=== PATIENT | female | born 1985 | race Caucasian/White ===

== ENCOUNTER 2016-09-25 10:05 | Emergency (ER) | payer MEDICAID ==
[~2016-09-25] VITALS: Wt 43.0 kg
[2016-09-25] MEDS ORDERED: ACETAMINOPHEN 325 MG TAB PO STA (11:08)
[2016-09-25] MEDS ORDERED: SOD CHLORIDE 0.9% 1,000 ML IV STA (11:08)
--- NOTE | 2016-09-25 11:13 | ERD ---
ER Documentation Chief Complaint Date/Time DATE: 09/25/16 TIME: 11:10 Chief Complaint vag bleed 4 wks with mild abdominal cramping. no n/v HPI 31-year-old female presents emergency department with a 1 day history of heavy bleeding with clots. Patient estimates that she is 4 weeks . Patient also notes mild lower abdominal cramping which she currently rates as a 2 out of 10. Patient reports using 1-2 pads per hour for the bleeding. Patient denies any nausea, vomiting, diarrhea, fever, chills, dysuria, other vaginal discharge, back pain. Last normal period was 12 August 2016. G3, P1, A1 ROS All systems reviewed and are negative except as per history of present illness. Allergies Allergies: Coded Allergies: Penicillins (Verified Allergy, Unknown, rash, 11/11/13) PMhx/Soc Medical and Surgical Hx: pt denies Medical Hx, pt denies Surgical Hx Hx Alcohol Use: No Hx Substance Use: No Hx Tobacco Use: No Smoking Status: Never smoker Physical Exam Vitals Vital Signs Date Time Temp Pulse Resp B/P Pulse Ox O2 Delivery O2 Flow Rate FiO2 09/25/16 10:08 98.4 94 20 124/82 99 Physical Exam Const: Well-developed, well-nourished, in no acute distress Head: Atraumatic . Resp: Clear to auscultation bilaterally Cardio: Regular rate and rhythm, no murmurs Abd: Soft, non tender, non distended. Normal bowel sounds Skin: No petechiae or rashes Back: No midline or flank tenderness Ext: No cyanosis, or edema Neur: Awake and alert Psych: Normal Mood and Affect Result Diagram: 09/25/16 1126 09/25/16 1126 Results 24 hrs Laboratory Tests Test 09/25/16 11:26 White Blood Count 6.610^3/ul Red Blood Count 4.6010^6/ul Hemoglobin 14.3g/dl Hematocrit 42.5% Mean Corpuscular Volume 92.4fl Mean Corpuscular Hemoglobin 31.1pg Mean Corpuscular Hemoglobin Concent 33.6g/dl Red Cell Distribution Width 11.9% Platelet Count 49895^3/UL Mean Platelet Volume 9.7fl Neutrophils % 65.7% Lymphocytes % 25.6% Monocytes % 7.1% Eosinophils % 1.1% Basophils % 0.2% Nucleated Red Blood Cells % 0.0/100WBC Neutrophils # 4.410^3/ul Lymphocytes # 1.710^3/ul Monocytes # 0.510^3/ul Eosinophils # 0.110^3/ul Basophils # 0.010^3/ul Nucleated Red Blood Cells # 0.010^3/ul Prothrombin Time 12.7Sec Prothrombin Time Ratio 1.0 INR International Normalized Ratio 0.95 Activated Partial Thromboplast Time 28.7Sec Urine Color YELLOW Urine Clarity CLEAR Urine pH 6.5 Urine Specific [place] 1.020 Urine Ketones NEGATIVE Urine Nitrite NEGATIVE Urine Bilirubin NEGATIVE Urine Urobilinogen 1.0 E.U./dL Urine Leukocyte Esterase NEGATIVE Urine Microscopic RBC 0-2/HPF Urine Microscopic WBC 0-2/HPF Urine Epithelial Cells MODERATE Urine Bacteria FEW Urine Hemoglobin TRACE Urine Glucose NEGATIVE% Urine Total Protein NEGATIVE Sodium Level 142mmol/L Potassium Level 3.4mmol/L Chloride Level 101mmol/L Carbon Dioxide Level 30mmol/L Anion Gap 14 Blood Urea Nitrogen 7mg/dl Creatinine 0.58mg/dl Glucose Level 109mg/dl Calcium Level 9.3mg/dl Beta HCG, Quantitative 2940.3mIU/ml Current Medications Medications (Trade) Dose Ordered Sig/James Route PRN Reason Start Time Stop Time Status Last Admin Dose Admin Sodium Chloride (NS) 1,000 ml @ 1,000 mls/hr Q1H STAT IV 09/25/16 11:08 09/25/16 12:07 DC 09/25/16 11:25 Acetaminophen (Tylenol Tab) 650 mg ONCE STAT PO 09/25/16 11:08 09/25/16 11:11 DC 09/25/16 11:26 Procedures/MDM PROCEDURE: US Pelvis. CLINICAL INDICATION: Vaginal bleeding and . TECHNIQUE: Multiple real time campos-scale sonographic images of the pelvis with Doppler evaluation of the ovaries were obtained utilizing a transabdominaland endovaginal technique. COMPARISON: None. FINDINGS: No evidence of intrauterine . The uterus measures 8.5 x 5.1 x 6.2 cm. The endometrial echo complex is normal and measures 6 mm in thickness. The right ovary has a normal echotexture and measures 3.8 x 1.3 x 1.8 cm . The left ovary has a normal echotexture and measures 3 x 1.2 x 2 cm. 2 x 1.57 mass- like structure adjacent to the right ovary with no appreciable internal blood flow. This may represent an ovarian fibroma. Given the history of positive , is concerning for possible ectopic Normal ovarian blood flow bilaterally. There is no evidence for free fluid within the cul-de-sac.No adnexal masses are noted. IMPRESSION: 1. No intrauterine identified. 2 x 1.5 cm nonspecific mass-like structure adjacent to the right ovary. This may represent an ovarian fibroma, however, given the history of positive , ectopic cannot be excluded . Correlate clinically to assess for missed AB. Serial Beta HCG and follow-up ultrasound may be considered for further evaluation. RPTAT:AAJJ Fracisco Rodriguez Physician Date Time Electronically viewed and signed by Physician Sivan on 09/25/2016 12:46 OVIDIO/ CC: ISMAEL MARSHALL PA-C Patient's pain controlled with 1 dose of Tylenol. Currently reports 0 out of 10 discomfort. 31-year-old otherwise healthy female presents with a 1 day history of vaginal bleeding and lower abdominal cramping. Last normal period 12 August 2016. Patient ultrasound revealed no evidence of intrauterine however there was a mass adjacent to the right ovary measured at 2. 1.5 cm. CBC showed no evidence of systemic infection or severe anemia. BMP showed no evidence of electrolyte abnormalities, severe acidosis, alkalosis , renal failure, or liver disease. UA showed no evidence of acute infection or hematuria. Beta hCG measured at 2940 Rh type A positive Labor and delivery on-call physician, Dr Kincaid, was consulted and examined the patient at bedside. He recommended follow-up in 3 days with repeat ultrasound and beta hCG. Return precautions given including increased pain or severe bleeding. Patient expressed understanding of and agreement with plan Based on patient's history of present illness and physical examination the decision was made to discharge. The patient was re-evaluated after ED treatment and stabilizing measures, and symptoms have improved. There is no evidence of life threatening injuries or illnesses at this time. On re-examination, patient resting in no distress, stable vital signs, reports feeling better and safe for discharge with outpatient follow up with PMD in 1-2 days. Patient given return precautions. Departure Diagnosis: Primary Impression: Vaginal bleeding in patient at less than 20 weeks gestation Additional Impressions: Abdominal cramping Missed ISMAEL MARSHALL PA-C Sep 25, 2016 11:13 ISMAEL MARSHALL PA-C Sep 25, 2016 11:13
[2016-09-25 12:09] LABS: ADD SCAN DIFF NO
[2016-09-25 12:19] LABS: BASOPHILS % 0.2 % (0.0-2.0); EOSINOPHILS # 0.1 10^3/ul (0.0-0.5); EOSINOPHILS % 1.1 % (0.0-7.0); HEMATOCRIT 42.5 % (37.0-47.0); HEMOGLOBIN 14.3 g/dl (12.0-16.0); LYMPHOCYTES # 1.7 10^3/ul (0.8-2.9); LYMPHOCYTES % 25.6 % (15.0-51.0); MEAN CORPUSCULAR HEMOGLOBIN 31.1 pg (29.0-33.0); MEAN CORPUSCULAR HGB CONC 33.6 g/dl (32.0-37.0); MEAN CORPUSCULAR VOLUME 92.4 fl (82.0-101.0); MEAN PLATELET VOLUME 9.7 fl (7.4-10.4); MONOCYTE # 0.5 10^3/ul (0.3-0.9); MONOCYTES % 7.1 % (0.0-11.0); NEUTROPHIL # 4.4 10^3/ul (1.6-7.5); NEUTROPHILS % 65.7 % (39.0-77.0); PLATELET COUNT 351 10^3/UL (140-415); RED CELL DISTRIBUTION WIDTH 11.9 % (11.5-14.5); WHITE BLOOD COUNT 6.6 10^3/ul (4.8-10.8)
[2016-09-25 12:20] LABS: ADD UMIC YES; INR 0.95; POTASSIUM 3.4 mmol/L (3.5-5.1); PROTIME 12.7 Sec (12.2-14.2); URINE BILIRUBIN (Dip) NEGATIVE (NEGATIVE); URINE BLOOD (Dip) TRACE (NEGATIVE); URINE COLOR YELLOW (YELLOW); URINE GLUCOSE (Dip) NEGATIVE (NEGATIVE); URINE KETONES (Dip) NEGATIVE (NEGATIVE); URINE LEUKOCYTE ESTERASE (Dip) NEGATIVE (NEGATIVE); URINE NITRITE (Dip) NEGATIVE (NEGATIVE); URINE TOTAL PROTEIN (Dip) NEGATIVE (NEGATIVE); URINE UROBILINOGEN (Dip) 1.0 E.U./dL (0.1-1.0)
[2016-09-25 12:21] LABS: PARTIAL THROMBOPLASTIN TIME 28.7 Sec (25.0-35.0)
[2016-09-25 12:22] LABS: CREATININE 0.58 mg/dl (0.44-1.00)
[2016-09-25 12:23] LABS: CALCIUM 9.3 mg/dl (8.4-10.2)
[2016-09-25 12:41] LABS: BACTERIA,URINE FEW; URINE RBCS 0-2 /HPF (0)
--- NOTE | 2016-09-25 12:46 | RADRPT ---
PROCEDURE: US Pelvis. CLINICAL INDICATION: Vaginal bleeding and . TECHNIQUE: Multiple real time campos-scale sonographic images of the pelvis with Doppler evaluation of the ovaries were obtained utilizing a transabdominaland endovaginal technique. COMPARISON: None. FINDINGS: No evidence of intrauterine . The uterus measures 8.5 x 5.1 x 6.2 cm. The endometrial echo complex is normal and measures 6 mm in thickness. The right ovary has a normal echotexture and measures 3.8 x 1.3 x 1.8 cm . The left ovary has a nor mal echotexture and measures 3 x 1.2 x 2 cm. 2 x 1.57 mass-like structure adjacent to the right ova ry with no appreciable internal blood flow. This may represent an ovarian fibroma. Given the histo ry of positive , is concerning for possible ectopic Normal ovarian blood flow jazz[place] aterally. There is no evidence for free fluid within the cul-de-sac.No adnexal masses are noted. IMPRESSION: 1. No intrauterine identified. 2 x 1.5 cm nonspecific mass-like structure adjacent to the right ovary. This may represent an ovarian fibroma, however, given the history of positive pregna ncy, ectopic cannot be excluded . Correlate clinically to assess for missed AB. Serial B eta HCG and follow-up ultrasound may be considered for further evaluation. RPTAT:AAJJ Physician Sivan Date Time Electronically viewed and signed by Physician Sivan on 09/25/2016 12:46 OVIDIO/
[2016-09-25] MEDS ORDERED: ONDA4TAB14 PO (14:27)
[2016-09-25] MEDS ORDERED: NAPR-260 PO (14:27)
--- NOTE | 2016-09-25 15:06 | CONS ---
Date/Time of Note Date/Time of Note DATE: 09/25/16 TIME: 14:57 Consultation Date/Type/Reason Admit Date/Time September 25, 2016 Emergency room consult Reason for Consultation This patient is a 31 years old 3 para 1 AB 1 who had one delivery by section she came to the emergency room complaining of vaginal bleeding her last menstrual period was August 12, 2016 Her previous periods apparently were regular in emergency room her beta-hCG level was reported 2940 She mentioned that at home before coming to the hospital she did have a considerable amount of blood and blood clot passed from vagina On ultrasound study adjacent to the right ovary there was a mass of 2 x 1.57 mm which apparently did not help much of the blood flow and it was similar to fibroid as explained by radiologist on this yesterday there was no fluid in the posterior cul-de-sac the left ovary was normal uterus appeared to be normal no evidence of intrauterine content the uterus itself was 8.5 x 5.1 was 6.2 cm and endometrial echocomplex was reported normal with thickness of 6 mm impression of the radiologist no intrauterine was identified in view of the positive hCG follow-up study was recommended on my examination the patient was a lady in no acute distress her ear nose throat were normal neck was normal no neck vein distention no thyromegaly chest was clear and was soft no rebound no lower abdominal tenderness no CVA tenderness extremities also appears to be normal. On pelvic examination vulva and vagina appears to be normal she has a slight vaginal bleeding cervix appears to be closed and posterior uterus within normal size no tenderness and no motion tenderness and tenderness of the cervix either both adnexa appeared to be normal without any evidence of enlargement or tenderness Hx of Present Illness Laboratory Tests Test 09/25/16 11:26 White Blood Count 6.610^3/ul Red Blood Count 4.6010^6/ul Hemoglobin 14.3g/dl Hematocrit 42.5% Mean Corpuscular Volume 92.4fl Mean Corpuscular Hemoglobin 31.1pg Mean Corpuscular Hemoglobin Concent 33.6g/dl Red Cell Distribution Width 11.9% Platelet Count 61724^3/UL Mean Platelet Volume 9.7fl Neutrophils % 65.7% Lymphocytes % 25.6% Monocytes % 7.1% Eosinophils % 1.1% Basophils % 0.2% Nucleated Red Blood Cells % 0.0/100WBC Neutrophils # 4.410^3/ul Lymphocytes # 1.710^3/ul Monocytes # 0.510^3/ul Eosinophils # 0.110^3/ul Basophils # 0.010^3/ul Nucleated Red Blood Cells # 0.010^3/ul Prothrombin Time 12.7Sec Prothrombin Time Ratio 1.0 INR International Normalized Ratio 0.95 Activated Partial Thromboplast Time 28.7Sec Urine Color YELLOW Urine Clarity CLEAR Urine pH 6.5 Urine Specific [place] 1.020 Urine Ketones NEGATIVE Urine Nitrite NEGATIVE Urine Bilirubin NEGATIVE Urine Urobilinogen 1.0 E.U./dL Urine Leukocyte Esterase NEGATIVE Urine Microscopic RBC 0-2/HPF Urine Microscopic WBC 0-2/HPF Urine Epithelial Cells MODERATE Urine Bacteria FEW Urine Hemoglobin TRACE Urine Glucose NEGATIVE% Urine Total Protein NEGATIVE Sodium Level 142mmol/L Potassium Level 3.4mmol/L Chloride Level 101mmol/L Carbon Dioxide Level 30mmol/L Anion Gap 14 Blood Urea Nitrogen 7mg/dl Creatinine 0.58mg/dl Glucose Level 109mg/dl Calcium Level 9.3mg/dl Beta HCG, Quantitative 2940.3mIU/ml Current Medications Medications (Trade) Dose Ordered Sig/James Route PRN Reason Start Time Stop Time Status Last Admin Dose Admin Sodium Chloride (NS) 1,000 ml @ 1,000 mls/hr Q1H STAT IV 09/25/16 11:08 09/25/16 12:07 DC 09/25/16 11:25 1,000 MLS/HR Acetaminophen (Tylenol Tab) 650 mg ONCE STAT PO 09/25/16 11:08 09/25/16 11:11 DC 09/25/16 11:26 650 MG With these positive finding patient was given the choice of either having a D&C right now or just going home and waiting and returning in the hospital in 3 days for follow-up test to rule out the possibility of ectopic 100% she decided not to have a D&C and go home and come back and 3 4 days in the emergency room end of dictation Constitutional: No chills, No diaphoresis, No disoriented, No febrile, No improved, No no complaints, No other, No poor po, No requiring IVF, No requiring O2 Eyes: No discharge, No no complaints, No other, No pain, No redness, No visual change ENT: No bleeding, No congestion, No discharge, No dysphagia, No no complaints, No other, No pain, No sore throat Respiratory: No cough, No no complaints, No other, No pain, No pleuritic pain, No shortness of breath, No sputum, No wheezing Cardiovascular: No chest pain, No edema, No lightheadedness, No no complaints, No orthopenea, No other, No palpitations, No paroxysmal nocturnal dyspnea Gastrointestinal: other (As I mentioned there were moderate amount of bleeding uterus was normal size no cervical motion tenderness no abdominal tenderness), No blood, No constipation, No decreased appetite, No diarrhea, No flatus, No nausea, No no complaints, No pain, No passing stool, No vomiting Genitourinary: No bleeding, No discharge, No dysuria, No flank pain, No hematuria, No no complaints, No other Musculoskeletal: No back pain, No bone/joint pain, No neck pain, No no complaints, No other, No restricted range of motion, No swelling Skin: No bruising, No erythema, No laceration, No no complaints, No other, No pruritis, No rash, No skin lesions Neurologic: No confusion, No dizziness, No focal-weakness, No headache, No no complaints, No other, No seizure, No syncope Endocrine: No dry skin, No no complaints, No other, No polydypsia, No polyuria , No temp intolerance Social History Smoking Status: Never smoker Exam/Review of Systems Vital Signs Vitals Vital Signs Date Time Temp Pulse Resp B/P Pulse Ox O2 Delivery O2 Flow Rate FiO2 09/25/16 10:08 98.4 94 20 124/82 99 Results Result Diagram: 09/25/16 1126 09/25/16 1126 Results 24 hrs Laboratory Tests Test 09/25/16 11:26 White Blood Count 6.6 Red Blood Count 4.60 Hemoglobin 14.3 Hematocrit 42.5 Mean Corpuscular Volume 92.4 Mean Corpuscular Hemoglobin 31.1 Mean Corpuscular Hemoglobin Concent 33.6 Red Cell Distribution Width 11.9 Platelet Count 351 Mean Platelet Volume 9.7 Neutrophils % 65.7 Lymphocytes % 25.6 Monocytes % 7.1 Eosinophils % 1.1 Basophils % 0.2 Nucleated Red Blood Cells % 0.0 Neutrophils # 4.4 Lymphocytes # 1.7 Monocytes # 0.5 Eosinophils # 0.1 Basophils # 0.0 Nucleated Red Blood Cells # 0.0 Prothrombin Time 12.7 Prothrombin Time Ratio 1.0 INR International Normalized Ratio 0.95 Activated Partial Thromboplast Time 28.7 Urine Color YELLOW Urine Clarity CLEAR Urine pH 6.5 Urine Specific [place] 1.020 Urine Ketones NEGATIVE Urine Nitrite NEGATIVE Urine Bilirubin NEGATIVE Urine Urobilinogen 1.0 E.U./dL Urine Leukocyte Esterase NEGATIVE Urine Microscopic RBC 0-2 Urine Microscopic WBC 0-2 Urine Epithelial Cells MODERATE Urine Bacteria FEW Urine Hemoglobin TRACE Urine Glucose NEGATIVE Urine Total Protein NEGATIVE Sodium Level 142 Potassium Level 3.4 L Chloride Level 101 Carbon Dioxide Level 30 Anion Gap 14 Blood Urea Nitrogen 7 Creatinine 0.58 Glucose Level 109 Calcium Level 9.3 Beta HCG, Quantitative 2940.3 BRIAN CARRASCO MD Sep 25, 2016 15:06
== END 2016-09-25 14:34 | disposition home or self-care (01) ==
LOC: FTE 10:05
DX: O26.891 Other specified pregnancy related conditions, first trimester (principal); R10.30 Lower abdominal pain, unspecified; O02.1 Missed abortion
CPT/HCPCS: 76801; 76817; 80048; 81001; 81003; 84702; 85025; 85610; 85730; 86900; 86901; J7030; Z7610; 36415

== ENCOUNTER 2016-09-29 11:36 | Emergency (ER) | payer MEDICAID ==
[~2016-09-29] VITALS: Ht 149.9 cm; Wt 44.5 kg
[~2016-09-29 11:36] MED LIST: NAPR-260 PO; ONDA4TAB14 PO
[2016-09-29 11:50] VITALS: Ht 149.9 cm; Wt 44.5 kg
[2016-09-29 13:41] LABS: ADD SCAN DIFF NO
[2016-09-29 13:46] LABS: BASOPHILS % 0.4 % (0.0-2.0); EOSINOPHILS # 0.2 10^3/ul (0.0-0.5); EOSINOPHILS % 3.8 % (0.0-7.0); HEMATOCRIT 38.7 % (37.0-47.0); LYMPHOCYTES # 1.6 10^3/ul (0.8-2.9); LYMPHOCYTES % 36.8 % (15.0-51.0); MEAN CORPUSCULAR HEMOGLOBIN 31.2 pg (29.0-33.0); MEAN CORPUSCULAR HGB CONC 33.6 g/dl (32.0-37.0); MEAN CORPUSCULAR VOLUME 92.8 fl (82.0-101.0); MEAN PLATELET VOLUME 9.4 fl (7.4-10.4); MONOCYTE # 0.4 10^3/ul (0.3-0.9); NEUTROPHIL # 2.2 10^3/ul (1.6-7.5); NEUTROPHILS % 49.6 % (39.0-77.0); PLATELET COUNT 322 10^3/UL (140-415); RED BLOOD COUNT 4.17 10^6/ul (4.20-5.40); RED CELL DISTRIBUTION WIDTH 12.1 % (11.5-14.5); WHITE BLOOD COUNT 4.5 10^3/ul (4.8-10.8)
--- NOTE | 2016-09-29 14:26 | ERD ---
ER Documentation Chief Complaint Date/Time DATE: 09/29/16 TIME: 14:24 Chief Complaint vag bleed x 4 days , here for recheck HPI This 31 [id number] female is here for recheck for vaginal bleeding of early . She was seen here 2 days ago had a quantitative hCG approximately 2000 with a ultrasound which showed no intrauterine . There was a paraovarian lesion possibly a fibroma but also cannot rule out ectopic. Patient has had complete resolution of bleeding and has no pain. Patient is a G3 para 1. Patient is Rh+ from previous visit. ROS All systems reviewed and are negative except as per history of present illness. Medications Home Meds Active Scripts Ondansetron (Ondansetron Odt) 4 Mg Tab.rapdis, 4 MG PO Q6H Y for NAUSEA AND/OR VOMITING, #10 TAB Prov:ISMAEL MARSHALL PA-C 09/25/16 Naproxen* (Naprosyn*) 500 Mg Tablet, 500 MG PO BID Y for PAIN AND/OR INFLAMMATION, #30 TAB Prov:ISMAEL MARSHALL PA-C 09/25/16 Allergies Allergies: Coded Allergies: Penicillins (Verified Allergy, Unknown, rash, 11/11/13) PMhx/Soc Medical and Surgical Hx: pt denies Medical Hx, pt denies Surgical Hx Hx Alcohol Use: No Hx Substance Use: No Hx Tobacco Use: No Physical Exam Vitals Vital Signs Date Time Temp Pulse Resp B/P Pulse Ox O2 Delivery O2 Flow Rate FiO2 09/29/16 11:50 98.8 78 16 129/73 100 Physical Exam Const: [] Head: Atraumatic Eyes: Normal Conjunctiva ENT: Normal External Ears, Nose and Mouth. Neck: Full range of motion..~ No meningismus. Resp: Clear to auscultation bilaterally Cardio: Regular rate and rhythm, no murmurs Abd: Soft, non tender, non distended. Normal bowel sounds Skin: No petechiae or rashes Back: No midline or flank tenderness Ext: No cyanosis, or edema Neur: Awake and alert Psych: Normal Mood and Affect Result Diagram: 09/29/16 1330 Results 24 hrs Laboratory Tests Test 09/29/16 13:30 White Blood Count 4.510^3/ul Red Blood Count 4.1710^6/ul Hemoglobin 13.0g/dl Hematocrit 38.7% Mean Corpuscular Volume 92.8fl Mean Corpuscular Hemoglobin 31.2pg Mean Corpuscular Hemoglobin Concent 33.6g/dl Red Cell Distribution Width 12.1% Platelet Count 25192^3/UL Mean Platelet Volume 9.4fl Neutrophils % 49.6% Lymphocytes % 36.8% Monocytes % 9.0% Eosinophils % 3.8% Basophils % 0.4% Nucleated Red Blood Cells % 0.0/100WBC Neutrophils # 2.210^3/ul Lymphocytes # 1.610^3/ul Monocytes # 0.410^3/ul Eosinophils # 0.210^3/ul Basophils # 0.010^3/ul Nucleated Red Blood Cells # 0.010^3/ul Beta HCG, Quantitative 275.6mIU/ml Procedures/MDM CBC is normal. Quantitative hCG is 275. Patient was asymptomatic throughout the ED course. Patient was signs and symptoms of likely complete . Recommending one more hCG check in 3-4 days. Should return sooner for fevers, pain, bleeding, new worsening symptoms. Current suspicion for ectopic very low but patient should return as directed. Should she see OB for follow-up this week. There is no other signs of acute abdomen, additional causes of lower abdominal pain or vaginal bleeding. Departure Diagnosis: Primary Impression: Complete Condition: Stable Patient Instructions: Miscarriage, Spontaneous (Completed) Additional Instructions: hormones esta muy abajo. probablente aborto completo . cheque ileana otro vez 3- 4 mas bull, o mas p[ronto para dolor , ileana , nueva simptomas. JAROD MARTINS MD Sep 29, 2016 14:26
[2016-09-29 14:40] VITALS: TEMP 98.5
== END 2016-09-29 14:40 | disposition home or self-care (01) ==
LOC: FTE 11:36
DX: O03.9 Complete or unspecified spontaneous abortion without complication (principal)
CPT/HCPCS: 36415; 84702; 85025; Z7502; 99283

== ENCOUNTER 2018-11-29 08:18 | Emergency (ER) | payer MEDICAID ==
[~2018-11-29] VITALS: Wt 60.0 kg
[~2018-11-29 08:18] MED LIST changes: -NAPR-260 PO; +NAPR-985 PO
[2018-11-29 08:21] VITALS: BP 125/78; PULSE 102; RESP 18
[2018-11-29] MEDS ORDERED: ONDANSETRON (ODT) 4 MG TAB ODT STA (08:38)
[2018-11-29] MEDS ORDERED: HYDROCODONE/APAP (5/325) TAB PO ONE (09:00)
[2018-11-29] MEDS ORDERED: NAPR-985 PO (09:50)
[2018-11-29] MEDS ORDERED: HYDR-4011 PO (09:50)
--- NOTE | 2018-11-29 13:59 | ERD ---
ER Documentation Chief Complaint Chief Complaint r shoulder pain from slip and fall outside couthouse . no obvious deformity HPI 33-year-old female presenting with right shoulder pain after slip and fall earlier today. Patient is right-hand dominant. She has not taken medications for symptoms. She has pain located over the shoulder and the clavicle. Denies medical problems. Allergy to penicillin. Surgical history . Social history denies ROS All systems reviewed and are negative except as per history of present illness. Medications Home Meds Active Scripts Naproxen* (Naprosyn*) 500 Mg Tablet, 500 MG PO BID PRN for PAIN AND/OR INFLAMMATION, #30 TAB Prov:GRISEL SLATER PA-C 11/29/18 Hydrocodone/Acetaminophen (Ash[place] 5-325 Tablet) 1 Each Tablet, 1 TAB PO Q6H PRN for PAIN, #7 TAB Prov:GRISEL SLATER PA-C 11/29/18 Ondansetron (Ondansetron Odt) 4 Mg Tab.rapdis, 4 MG PO Q6H PRN for NAUSEA AND/OR VOMITING, #10 TAB Prov:ISMAEL MARSHALL PA-C 09/25/16 Naproxen* (Naprosyn*) 500 Mg Tablet, 500 MG PO BID PRN for PAIN AND/OR INFLAMMATION, #30 TAB Prov:ISMAEL MARSHALL PA-C 09/25/16 Allergies Allergies: Coded Allergies: Penicillins (Verified Allergy, Unknown, rash, 11/11/13) PMhx/Soc History of Surgery: Yes (C/S) Anesthesia Reaction: No Hx Respiratory Disorders: Yes (Asthma) Hx Alcohol Use: No Hx Substance Use: No Hx Tobacco Use: No Smoking Status: Never smoker FmHx Family History: No diabetes, No coronary disease, No other Physical Exam Vitals Vital Signs Date Temp Pulse Resp B/P (MAP) Pulse Ox O2 O2 Flow FiO2 Time Delivery Rate 11/29/18 98.8 102 18 125/78 98 08:21 (94) Physical Exam GENERAL: The patient is well-appearing, well-nourished, in no acute distress CHEST: Clear to auscultation bilaterally. There are no rales, wheezes or rhonchi. HEART: Regular rate and rhythm. No murmurs, clicks, rubs or gallops. No S3 or S4. EXTREMITIES: Tender to palpation of her right shoulder. No palpable deformities. No crepitus on exam. No swelling. No lacerations or abrasions. Decreased range of motion secondary to pain. Compartments soft. NEUROLOGIC: Alert and oriented. Cranial nerves II through XII intact. Motor strength in all 4 extremities with 5 out of 5 strength. Sensation grossly intact. Normal speech and gait. SKIN: There is no apparent rash or petechiae. The skin is warm and dry. Results 24 hrs Current Medications Medications Dose Sig/James Start Time Status Last (Trade) Ordered Route PRN Stop Time Admin Dose Reason Admin 1 tab ONCE ONCE 11/29/18 DC 11/29/18 Acetaminophen PO 09:00 11/29/18 08:44 / 09:01 Hydrocodone Bitart (Ashford (5/325)) Ondansetron 4 mg ONCE STAT 11/29/18 DC 11/29/18 HCl (Zofran ODT 08:38 11/29/18 08:44 Odt) 08:39 Procedures/MDM DIAGNOSTIC IMAGING REPORT Patient: TAMIKO HODGES : 1985 Age: 33 Sex: F MR #: [id number] DOS: 11/29/18 0838 Ordering MD: LESA SLATER PA-C Location: [facility] Room/Bed: PROCEDURE: XR right clavicle. CLINICAL INDICATION: Fall. Pain. TECHNIQUE: Two views of the right clavicle were performed. COMPARISON: Right shoulder and humerus 11/29/2018 . FINDINGS: There is no acute fracture or dislocation. No definite lytic or blastic lesion.. No significant degenerative change. IMPRESSION: No acute osseous pathology. DIAGNOSTIC IMAGING REPORT Patient: TAMIKO HODGES : 1985 Age: 33 Sex: F MR #: [id number] DOS: 11/29/18 0838 Ordering MD: LESA SLATER PA-C Location: [facility] Room/Bed: PROCEDURE: Right humerus x-ray CLINICAL INDICATION: Fall. Pain. TECHNIQUE: AP and lateral views of the humerus were obtained. COMPARISON: Right shoulder 11/29/2018. FINDINGS: There is normal mineralization. No acute fracture or dislocation is seen. There is no significant soft tissue swelling. The visualized joints are normal. IMPRESSION: Normal x-ray of the right humerus. DIAGNOSTIC IMAGING REPORT Patient: TAMIKO HODGES : 1985 Age: 33 Sex: F [id number] DOS: 11/29/18 0838 Ordering MD: LESA SLATER PA-C Location: [facility] Room/Bed: PROCEDURE: XR right shoulder. CLINICAL INDICATION: Fall TECHNIQUE: AP and transscapular views of the right shoulder were performed. COMPARISON: Right humerus 11/29/2018. FINDINGS: There is normal osseous mineralization and alignment. No acute fracture or osseous lesion is identified. There are normal joints without evidence of arthritis or dislocation. The soft tissues are unremarkable. IMPRESSION: Unremarkable right shoulder. MDM: 33-year-old female presenting with right shoulder pain. I have low suspicion for acute fracture dislocation. I have low suspicion for tendon or ligament rupture. I low suspicion for neuro deficit. She is discharged with supportive medications and told to move the arm as much as possible. Patient is told symptoms change or worsen to return immediately to the ER. All questions answered at discharge Departure Diagnosis: Primary Impression: Shoulder pain Condition: Stable Patient Instructions: Shoulder Pain (Uncertain Cause) Referrals: COMM[facility]ITY CLIN[facility] YOU HAVE RECEIVED A MEDICAL SCREENING EXAM AND THE RESULTS INDICATE THAT YOU DO NOT HAVE A CONDITION THAT REQUIRES URGENT TREATMENT IN THE EMERGENCY DEPARTMENT. FURTHER EVALUATION AND TREATMENT OF YOUR CONDITION CAN WAIT UNTIL YOU ARE SEEN IN YOUR DOCTORS OFFICE WITHIN THE NEXT 1-2 DAYS. IT IS YOUR RESPONSIBILITY TO MAKE AN APPOINTMENT FOR FOLOW-UP CARE. IF YOU HAVE A PRIMARY DOCTOR --you should call your primary doctor and schedule an appointment IF YOU DO NOT HAVE A PRIMARY DOCTOR YOU CAN CALL OUR PHYSICIAN REFERRAL HOTLINE AT IF YOU CAN NOT AFFORD TO SEE A PHYSICIAN YOU CAN CHOSE FROM THE FOLLOWING [facility] [place] [address] [facility]. [facility] [address] [facility] [address] [employer] [address] [facility] [address] [facility]. [facility] [address] Additional Instructions: FOLLOW UP WITH YOUR PRIMARY CARE PHYSICIAN TOMORROW.Return to this facility if you are not improving as expected. GRISEL SLATER PA-C Nov 29, 2018 13:59
== END 2018-11-29 10:10 | disposition home or self-care (01) ==
LOC: FTE 08:18
DX: M25.511 Pain in right shoulder (principal); J45.909 Unspecified asthma, uncomplicated
CPT/HCPCS: 73000; 73030; 73060; Z7502; Z7610